=== PATIENT | female | born 1950 | race Caucasian/White ===

== ENCOUNTER 2018-02-05 21:26 | Emergency (ER) | payer MEDICARE, BC ==
[2018-02-05 21:48] VITALS: BP 175/91
--- NOTE | 2018-02-05 22:00 | EDM.PDOC ---
ED HPI GENERAL MEDICAL PROBLEM - General Chief Complaint: Respiratory Problem Stated Complaint: SOB Time Seen by Provider: 02/05/18 21:52 Source of Information: Reports: Patient History Limitations: Reports: No Limitations - History of Present Illness INITIAL COMMENTS - FREE TEXT/NARRATIVE: pt arrived with sob which has been going on for several days. Onset: Other (pt was at a picnic yesterday and while at the park she became quite sob. He has had a cough which is not productive. ) Duration: Hour(s): Location: Reports: Chest Associated Symptoms: Reports: Cough, Shortness of Breath, Other ( chest feels very tight. 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 - Past Surgical History Female Surgical History: Reports: Section ED ROS GENERAL - Review of Systems Review Of Systems: See Below Constitutional: Reports: No Symptoms HEENT: Reports: No Symptoms Respiratory: Reports: Shortness of Breath, Wheezing, Cough, Other ( the cough is nonproductive. She is feeling very tight in her chest and feels like she can, t fill her lungs. ) Cardiovascular: Reports: No Symptoms Endocrine: Reports: No Symptoms GI/Abdominal: Reports: No Symptoms : Reports: No Symptoms Musculoskeletal: Reports: No Symptoms Skin: Reports: No Symptoms Neurological: Reports: No Symptoms ED EXAM, GENERAL - Physical Exam Exam: See Below Free Text/Narrative:: pt arrived feeling very tight in her chest. She still has good o2 levels. She was at the park for a picnic and her chest became very tight quite suddenly and she felt like she could not fill her lungs. Exam Limited By: Respiratory Distress General Appearance: Alert, Anxious, Mild Distress Ears: Normal TMs Nose: Normal Inspection Throat/Mouth: Normal Inspection Head: Atraumatic Neck: Normal Inspection Respiratory/Chest: Decreased Breath Sounds, Wheezing Cardiovascular: Regular Rate, Rhythm GI/Abdominal: Soft, Non-Tender (Female) Exam: Deferred Rectal (Female) Exam: Deferred Back Exam: Normal Inspection Extremities: Normal Inspection, Other (pt has no edema. ) Neurological: Alert, Oriented, Normal Cognition Psychiatric: Anxious Course - Vital Signs Last Recorded V/S: Last Vital Signs Temp 36.6 C 02/05/18 21:53 Pulse 88 02/05/18 21:53 Resp 16 02/05/18 21:53 BP 175/91 H 02/05/18 21:53 Pulse Ox 95 02/05/18 21:53 - Orders/Labs/Meds Labs: Laboratory Tests 02/05/18 02/05/18 02/05/18 Range/Units 22:19 22:19 22:19 WBC 12.1 H (4.5-11.0) K/uL RBC 4.61 (3.30-5.50) M/uL Hgb 13.7 (12.0-15.0) g/dL Hct 40.7 (36.0-48.0) % MCV 88 (80-98) fL MCH 30 (27-31) pg MCHC 34 (32-36) % Plt Count 306 (150-400) K/uL Neut % (Auto) 54 (36-66) % Lymph % (Auto) 33 (24-44) % [place] % (Auto) 8 H (2-6) % Eos % (Auto) 5 H (2-4) % Baso % (Auto) 0 (0-1) % Sodium 141 (140-148) mmol/L Potassium 3.9 (3.6-5.2) mmol/L Chloride 106 (100-108) mmol/L Carbon Dioxide 25 (21-32) mmol/L Anion Gap 9.8 (5.0-14.0) mmol/L BUN 21 H (7-18) mg/dL Creatinine 1.3 H (0.6-1.0) mg/dL Est Cr Clr Drug Dosing 30.58 mL/min Estimated GFR (MDRD) 41 L (>60) Glucose 139 H (74-106) mg/dL Calcium 8.6 (8.5-10.1) mg/dL Total Bilirubin 0.2 (0.2-1.0) mg/dL AST 18 (15-37) U/L ALT 30 (12-78) U/L Alkaline Phosphatase 109 (46-116) U/L NT-Pro-B Natriuret Pep 90 (5-125) pg/mL Total Protein 6.9 (6.4-8.2) g/dL Albumin 3.5 (3.4-5.0) g/dL Globulin 3.4 (2.3-3.5) g/dL Albumin/Globulin Ratio 1.0 L (1.2-2.2) Meds: Medications Discontinued Medications Generic Name Dose Route Start Last Admin Trade Name Freq PRN Reason Stop Dose Admin Albuterol 2.5 mg 02/05/18 22:08 02/05/18 22:23 Proventil Neb Soln NEB 02/05/18 22:09 2.5 mg ONETIME ONE Administration Albuterol 2.5 mg 02/05/18 23:12 02/05/18 23:32 Proventil Neb Soln NEB 02/05/18 23:13 2.5 mg ONETIME ONE Administration Methylprednisolone Sodium Succinate 125 mg 02/05/18 22:06 02/05/18 22:45 Solu-Medrol IVPUSH 02/05/18 22:07 125 mg ONETIME ONE Administration Sodium Chloride 10 ml 02/05/18 22:07 02/05/18 22:45 Saline Flush FLUSH 10 ml ASDIRECTED PRN Administration Keep Vein Open - Re-Assessments/Exams Free Text/Narrative Re-Assessment/Exam: 02/05/18 23:56 pt was given solumedrol and 2 nebs she did much better. Her chest xray looked good. S he had no fever. 02/08/18 18:44 her bnp, wbc and trop were normal. Departure - Departure Time of Disposition: 23:57 Disposition: Home, Self-Care 01 Condition: Fair Clinical Impression: Acute asthma flare - Discharge Information Instructions: Asthma Attack Referrals: Radha Valdez PA [Primary Care Provider] - Forms: ED Department Discharge Care Plan Goals: albuterol inhaler 2 puffs qid for the next 5 days, predisone 30mg tomorrow then 20mg x2 days then 10mg x 2days. After the 5 days use the albuterol inhaler PRN
[2018-02-05] MEDS ORDERED: methylPREDNISolone Sodium Succinate 125 MG/2 ML SDV IVPUSH ONE (22:06)
[2018-02-05] MEDS ORDERED: Sodium Chloride 0.9% 10 ML Syringe FLUSH PRN (22:07)
[2018-02-05] MEDS ORDERED: Albuterol 0.083% 2.5 MG/3 ML Neb Soln NEB ONE ×2 (22:08→23:12)
--- NOTE | 2018-02-06 09:27 | CR ---
Chest 2V FINDINGS: The heart and vascular structures are normal in appearance. No infiltrates or effusions are demonstrated. The skeletal structures are unremarkable. IMPRESSION: Negative exam.
== END 2018-02-06 00:22 | disposition home or self-care (01) ==
LOC: JP.ED 21:26
DX: J45.901 Unspecified asthma with (acute) exacerbation (principal); Z88.1 Allergy status to other antibiotic agents; Z79.899 Other long term (current) drug therapy
CPT/HCPCS: 36415; 71046; 80053; 83880; 85025; 94640; 96374; 99285; J2930; J7050

== ENCOUNTER 2021-05-02 12:55 | Emergency (ER) | payer BC, MEDICARE ==
[2021-05-02] MEDS ORDERED: methylPREDNISolone Sodium Succinate 125 MG/2 ML SDV IVPUSH PRN (13:51)
[2021-05-02] MEDS ORDERED: EPINEPHrine 1 MG/ML SDV IM PRN (13:51)
[2021-05-02] MEDS ORDERED: Bamlanivimab 700 MG, ETESEVIMAB 1,400 MG in Sodium Chloride 0.9% 100 ML IV ONE ×2 (13:51→14:15)
[2021-05-02] MEDS ORDERED: Famotidine 20 MG/2 ML SDV IVPUSH PRN (13:51)
[2021-05-02] MEDS ORDERED: diphenhydrAMINE 50 MG/ML SDV IVPUSH PRN (13:51)
[2021-05-02] MEDS ORDERED: Sodium Chloride 0.9% 10 ML Syringe FLUSH SCH (14:00)
--- NOTE | 2021-05-02 14:40 | EDM.PDOC ---
ED HPI GENERAL MEDICAL PROBLEM - General Chief Complaint: Respiratory Problem Stated Complaint: COVID Time Seen by Provider: 05/02/21 13:50 Source of Information: Reports: Patient, RN Notes Reviewed History Limitations: Reports: No Limitations - History of Present Illness INITIAL COMMENTS - FREE TEXT/NARRATIVE: Rossy presents today for complaints of COVID positive test at home, congestion, cough with mucus, headache, sweats, chills, diarrhea for 4 days. She denies hard work of breathing, SOB or other concerns. Rossy requested antibody therapy if available. Pharmacy contacted, reviewed with nursing staff. We will provide antibody therapy while in the emergency room. Rossy is currently unvaccinated against COVID. Headache Pain Score (Numeric/FACES): 1 - Related Data Allergies Allergy/AdvReac Type Severity Reaction Status Date / Time amoxicillin AdvReac Nausea and Verified 05/02/21 13:19 Vomiting Home Meds: Home Meds Betamethasone/Clotrimazole [Lotrisone] 1 applic TOP BID PRN 10/31/14 [History] Omeprazole 20 mg PO DAILY 10/31/14 [History] Formoterol/Mometasone [Dulera 100 MCG/5 MCG] 1 - 2 puff INH BID PRN 05/02/21 [History] Past Medical History HEENT History: Reports: Cataract, Hard of Hearing Respiratory History: Reports: SOB, Other (See Below) Other Respiratory History: emphysema Gastrointestinal History: Reports: GERD Genitourinary History: Reports: Other (See Below) Other Genitourinary History: decreased kidney function 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: Musculoskeletal History: Reports: Arthritis, Neck Pain, Chronic Other Musculoskeletal History: 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, hip Psychiatric History: Reports: Depression - Infectious Disease History Infectious Disease History: Reports: Chicken Pox - Past Surgical History HEENT Surgical History: Reports: Cataract Surgery GI Surgical History: Reports: Cholecystectomy, Colonoscopy Female Surgical History: Reports: Section Social & Family History - Tobacco Use Tobacco Use Status *Q: Current Every Day Tobacco User Years of Tobacco use: 40 Packs/Tins Daily: 0.5 - Caffeine Use Caffeine Use: Reports: Coffee - Recreational Drug Use Recreational Drug Use: No ED ROS GENERAL - Review of Systems Review Of Systems: See Below Constitutional: Reports: Fever, Chills, Malaise, Fatigue, Diaphoresis, Weight Gain. Denies: Weakness, Night Sweats, Decreased Appetite HEENT: Reports: Sinus Problem (congestion). Denies: Dental Pain, Ear Pain, Eye Pain, Nosebleed, Nose Pain, Throat Pain, Throat Swelling, Vertigo, Vision Change Respiratory: Reports: Cough, Sputum. Denies: Shortness of Breath, Wheezing, Pleuritic Chest Pain, Hemoptysis Cardiovascular: Reports: No Symptoms Endocrine: Reports: No Symptoms GI/Abdominal: Reports: Diarrhea : Reports: No Symptoms Musculoskeletal: Reports: Other (generalized body aches) Skin: Reports: No Symptoms Neurological: Reports: No Symptoms Psychiatric: Reports: No Symptoms Hematologic/Lymphatic: Reports: No Symptoms Immunologic: Reports: No Symptoms ED EXAM, GENERAL - Physical Exam Exam: See Below Exam Limited By: No Limitations General Appearance: Alert, WD/WN, No Apparent Distress Eye Exam: Bilateral Eye: Normal Inspection, PERRL Ears: Normal External Exam, Normal Canal, Hearing Grossly Normal, Normal TMs Nose: Normal Inspection, Normal Mucosa, No Blood Throat/Mouth: Normal Inspection, Normal Lips, Normal Teeth, Normal Gums, Normal Oropharynx, Normal Voice, No Airway Compromise Head: Atraumatic, Normocephalic Neck: Normal Inspection, Supple, Non-Tender, Full Range of Motion. No: Lymphadenopathy (R), Lymphadenopathy (L) Respiratory/Chest: No Respiratory Distress, Lungs Clear, Normal Breath Sounds, No Accessory Muscle Use, Chest Non-Tender. No: Crackles, Rales, Rhonchi, Wheezing, Stridor, Retractions, Splinting Cardiovascular: Normal Peripheral Pulses, Regular Rate, Rhythm, No Edema, No Gallop, No Murmur, No Rub Peripheral Pulses: 4+: Radial (L), Radial (R) Back Exam: Normal Inspection, Full Range of Motion. No: CVA Tenderness (R), CVA Tenderness (L) Extremities: Normal Inspection, Normal Range of Motion, Non-Tender, No Pedal Edema, Normal Capillary Refill Neurological: Alert, Oriented, Normal Cognition, Normal Gait, No Motor/Sensory Deficits Psychiatric: Normal Affect, Normal Mood Skin Exam: Warm, Dry, Intact, No Rash, Other (pale) Lymphatic: No Adenopathy Course - Vital Signs Last Recorded V/S: Last Vital Signs Temp 36.9 C 05/02/21 16:00 Pulse 74 05/02/21 15:03 Resp 17 05/02/21 16:00 BP 142/72 H 05/02/21 16:00 Pulse Ox 97 05/02/21 16:00 - Orders/Labs/Meds Labs: Laboratory Tests 05/02/21 Range/Units 12:59 SARS CoV-2 RNA Rapid NIKOLAS Positive H Meds: Medications Discontinued Medications Generic Name Dose Route Start Last Admin Trade Name Ugoq PRN Reason Stop Dose Admin Diphenhydramine HCl 50 mg 05/02/21 13:51 Diphenhydramine 50 Mg/Ml Sdv IVPUSH 05/02/21 22:00 ASDIRECTED PRN hypersensitivity reaction Epinephrine HCl 0.3 mg 05/02/21 13:51 Epinephrine 1 Mg/Ml Sdv IM 05/02/21 22:00 ASDIRECTED PRN hypersensitivity reaction Famotidine 20 mg 05/02/21 13:51 Famotidine 20 Mg/2 Ml Sdv IVPUSH 05/02/21 22:00 ASDIRECTED PRN hypersensitivity reaction Bamlanivimab 700 mg/ 160 mls @ 310 mls/hr 05/02/21 14:15 05/02/21 14:26 Etesevimab 1,400 mg/ Sodium IV 05/02/21 14:45 310 mls/hr Chloride ONETIME ONE Administration Methylprednisolone Sodium Succinate 125 mg 05/02/21 13:51 Methylprednisolone Sodium Succinate 125 Mg/2 Ml Sdv IVPUSH 05/02/21 22:00 ASDIRECTED PRN hypersensitivity reaction Sodium Chloride 30 ml 05/02/21 14:00 Sodium Chloride 0.9% 10 Ml Syringe FLUSH 05/02/21 22:00 ASDIRECTED TERE - Re-Assessments/Exams Free Text/Narrative Re-Assessment/Exam: 05/02/21 14:10 Rossy consents to administration of monoclonal antibody IV therapy for COVID. She understands this is not approved by the FDA and is used under emergency use authorization. All her questions were answered. She is in agreement with plan. Antibody infusion started. 05/02/21 16:25 Patient tolerated antibody infusion without issue. Education provided on quarantine, ongoing care of COVID. Patient verbalized understanding. She is discharged to home with family. Departure - Departure Time of Disposition: 16:20 Disposition: Home, Self-Care 01 Condition: Good Clinical Impression: COVID-19 - Discharge Information Instructions: COVID-19: What to Do If You Are Sick- CDC (09/09/2020) Referrals: Juancarlos Barkley NP [Primary Care Provider] - Forms: ED Department Discharge Additional Instructions: You have been evaluated and treated for COVID. Symptom onset 04/29/2021. We were able to provide IV monoclonal antibody therapy while in the emergency room. You need to monitor your breathing, if you are having a difficult time breathing and your oxygen level is less then 90% you should return to the emergency room for ongoing care. Use of antibiotics or steroids at this time will not do anything to improve your condition as COVID is a virus. You must follow up with your primary for a recheck 14 days after your onset of illness for a recheck due to your significant history of breathing issues and parts counterman effects of COVID. Return to the emergency room for any worsening, issues or concerns. Sepsis Event Note (ED) - Focused Exam Vital Signs: Vital Signs Temp Pulse Resp BP Pulse Ox 05/02/21 16:00 36.9 C 17 142/72 H 97 05/02/21 15:03 37.0 C 74 18 130/63 96 05/02/21 14:45 75 18 125/66 97 05/02/21 14:29 37.0 C 73 18 109/50 L 95 05/02/21 13:27 37.2 C 76 18 110/62 96 05/02/21 13:25 37.2 C 81 18 110/62 96 - Assessment/Plan Assessment:: COVID-19 Patient provided monoclonal antibody infusion - tolerated well. Plan: Patient evaluated and treated for COVID. Symptom onset 04/29/2021. We were able to provide IV monoclonal antibody therapy while in the emergency room. Use albuterol inhaler as directed. She will need to monitor breathing status due to her comorbidities. If she has a difficult time breathing, oxygen level is less then 90%, she is advised to return to the emergency room for ongoing care. Use of antibiotics or steroids at this time will not do anything to improve condition as COVID is a virus. Follow up with primary for a recheck 14 days after onset of illness for a recheck due to significant history of breathing issues and parts counterman effects of COVID. Return to the emergency room for any worsening, issues or concerns.
[2021-05-02 15:05] VITALS: PULSE 74
[2021-05-02 16:15] VITALS: BP 142/72
== END 2021-05-02 16:34 | disposition home or self-care (01) ==
LOC: JP.ED 12:55
DX: U07.1 COVID-19 (principal); K21.9 Gastro-esophageal reflux disease without esophagitis; Z88.0 Allergy status to penicillin; Z79.899 Other long term (current) drug therapy; Z72.0 Tobacco use
CPT/HCPCS: 99284; M0245; Q0245; U0002

== ENCOUNTER 2024-06-21 17:42 | Emergency (ER) | payer MEDICARE ==
[2024-06-21 18:02] LABS: BASOPHILS ABSOLUTE AUTO 0.05 K/uL (0.00-0.10); BASOPHILS PERCENT AUTO 0.4 % (0.1-1.3); EOSINOPHILS ABSOLUTE AUTO 0.25 K/uL (0.00-0.40); EOSINOPHILS PERCENT AUTO 2.1 % (0.0-5.4); HEMATOCRIT 41.5 % (34.3-46.0); HEMOGLOBIN 14.2 g/dL (11.2-15.5); IMMATURE GRAN ABSOLUTE AUTO 0.04 K/uL (0.00-0.23); IMMATURE GRAN PERCENT AUTO 0.3 % (0.0-0.7); LYMPHOCYTES ABSOLUTE AUTO 4.14 K/uL (0.8-3.3); LYMPHOCYTES PERCENT AUTO 35.6 % (11.4-47.7); MEAN CORPUSCULAR HEMOGLOBIN 30.3 pg (31.6-35.5); MEAN CORPUSCULAR HGB CONC 34.2 g/dL (31.6-35.5); MEAN CORPUSCULAR VOLUME 88.7 fL (81.4-99.0); MONOCYTES ABSOLUTE AUTO 0.78 K/uL (0.20-0.90); MONOCYTES PERCENT AUTO 6.7 % (3.3-12.6); NEUTROPHILS ABSOLUTE AUTO 6.37 K/uL (1.0-7.6); NEUTROPHILS PERCENT AUTO 54.9 % (40.0-78.1); PLATELET COUNT,PLT 295 K/uL (130-375); RED BLOOD CELL COUNT 4.68 M/uL (3.77-5.24); WHITE BLOOD CELL COUNT,WBC 11.6 K/uL (3.2-11.0)
[2024-06-21 18:22] LABS: PROTHROMBIN TIME 10.3 sec (9.2-10.6); PTT,PARTIAL THROMBOPLSTIN TIME 23.7 sec (21.8-27.3)
[2024-06-21] MEDS: Aspirin 81 MG Tab.Chew PO ONE (18:23)
[2024-06-21 18:25] LABS: ANION GAP 9.5 mmol/L (5.0-14.0); CREATININE 1.1 mg/dL (0.6-1.0); EST CRCL DRUG DOSING (CG) 33.21 mL/min; POTASSIUM,K 3.7 mmol/L (3.6-5.2)
[2024-06-21] MEDS: Nitroglycerin 0.4 MG Tab.SL SL PRN (18:25)
[2024-06-21] MEDS: Heparin Sodium 5,000 Units/ML Vial IVPUSH ONE (18:58)
[2024-06-21] MEDS: Heparin Sodium/D5W 25,000 UNITS/500 ML BAG IV SCH (18:59)
[2024-06-21] MEDS: Nitroglycerin/D5W 25 MG/250 ML BOTTLE IV SCH (20:14)
[2024-06-21 23:58] VITALS: BP 118/56; PULSE 68
== END 2024-06-22 00:11 ==
LOC: JP.ED 17:42
DX: I21.4 Non-ST elevation (NSTEMI) myocardial infarction (principal); I20.89 Other forms of angina pectoris; K21.9 Gastro-esophageal reflux disease without esophagitis; F17.210 Nicotine dependence, cigarettes, uncomplicated; Z79.899 Other long term (current) drug therapy; Z88.0 Allergy status to penicillin
CPT/HCPCS: 36415; 71045; 80048; 84484; 85025; 85610; 85730; 93005; 93010; 96365; 96366; 96368; 99285; 99285-25; A9270-GY; J1644; J2305